=== PATIENT | male | born 2000 | race Caucasian/White ===

== ENCOUNTER → 2019-05-21 12:25 | Outpatient (CLI) | payer OTHER ==
[2019-04-22 20:38] VITALS: BMI 23.5
[~2019-05-21 12:25] MED LIST: KLONOPIN1 MG PO
== END | disposition home or self-care (01) ==
LOC: D.NM 12:25
PROVIDERS: ATTEND Internal Medicine Gastroenterology
DX: R11.2 Nausea with vomiting, unspecified (principal); R10.11 Right upper quadrant pain; R63.4 Abnormal weight loss